=== PATIENT | male | born 1955 | race African-American/Black ===

== ENCOUNTER 2016-06-09 10:31 | Emergency (ER) | payer OTHER ==
[2016-06-09 10:41] VITALS: BP 152/83; PULSE 89; TEMP 98.9; BMI 30.1
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
[2016-06-09] MEDS ORDERED: IBUPROFEN 600 MG TABLET (FP) PO ONE ×2 (11:46→11:48)
== END 2016-06-09 12:18 | disposition home or self-care (01) ==
LOC: JERFT 10:31 → JER 10:31 → JERFT 12:18
PROC: 2W39X1Z Immobilization of Left Upper Extremity using Splint (ICD-10-PCS; principal; 2016-06-09)
DX: M77.8 Other enthesopathies, not elsewhere classified (principal)
CPT/HCPCS: 29260; 73110-TC-LT; 99281-25

== ENCOUNTER 2017-10-06 04:47 | Emergency (ER) | payer OTHER ==
[2017-10-06 04:54] VITALS: BP 139/89; PULSE 82; TEMP 97.8; BMI 29.6
[2017-10-06] MEDS ORDERED: IBUPROFEN 400 MG TABLET (FP) PO ONE (04:54)
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
== END 2017-10-06 05:03 | disposition home or self-care (01) ==
LOC: FER 04:47
DX: M25.512 Pain in left shoulder (principal); S46.902A Unspecified injury of unspecified muscle, fascia and tendon at shoulder and upper arm level, left arm, initial encounter; V43.52XA Car driver injured in collision with other type car in traffic accident, initial encounter; Y93.89 Activity, other specified; Y92.410 Unspecified street and highway as the place of occurrence of the external cause; I10 Essential (primary) hypertension; E11.9 Type 2 diabetes mellitus without complications
CPT/HCPCS: 99282-25

== ENCOUNTER 2019-05-04 08:39 | Inpatient (IN) | payer SELFPAY ==
[2019-05-04] MEDS: SODIUM CHLORIDE 1,000 ML IV SCH ×2 (09:15→17:38)
--- NOTE | 2019-05-04 09:25 | PDOC ---
History of Present Illness - General History Source: Patient Exam Limitations: No Limitations - History of Present Illness Initial Comments: 05/04/19 09:11 63 yo M with a hx of HTN and DM presents to the emergency department with right facial weakness that began at 7:30 am. Per the patient, he states he was at rest when the symptoms occurred. It was right facial weakness, but denies extremity weakness. Denies sensation loss. Denies hx of chickenpox and zoster. Per the patient, denies trauma. He feels, subjectively, resolving symptoms. Denies the following: fever, chills, SOB, chest pain, nausea, vomiting, ears/ nose/throat pain, abdominal pain, dysuria, hematuria, diarrhea, hematochezia, and leg pain/swelling. 05/04/19 10:16 <Jayson Pavon - Last Filed: 05/04/19 11:07> <Glenda Mckeon - Last Filed: 05/05/19 21:34> - General Stated Complaint: PAIN tPA Exclusion Checklist 0-3hr - Time Elapsed Date last known well: 05/04/19 Time last known well: 07:30 Elaspsed time: Day(s) and 3 Hour(s) and 37 Minutes - Thrombolytic Therapy Candidate Is the patient eligible for Thrombolytic Therapy?: Yes - Exclusion Criteria 0-3hr SBP greater than 185 or DBP greater than 110mmHg despite tx: No Recent IC/spinal surgery,head trauma or stroke w/in last 3mo: No Hx of previous IC hemorrhage, IC neoplasm, AVM or aneurysm: No Active internal bleeding: No Blding diathesis(low plt ct, inc PTT,INR>1.7 or use of NOAC): No Symptoms suggest subarachnoid hemorrhage: No CT demonstrates multilobar infarct(>1/3 cerebral hemiphere): No Arterial puncture at noncompressible site in previous 7 days: No - Relative Exclusion Criteria 0-3h Life expectancy <1yr/severe co-morbid illness/TELEX OPERATOR on admit: No : No Patient/family refused: No Rapid improvement: Yes Stroke severity too mild: Yes Recent acute WA (w/in previous 3 months): No Seizure at onset with postictal residual neuro impairments: No Major surgery or serious trauma w/in previous 14 days: No Recent GI or hemorrhage (w/in previous 21 days): No - Ineligibility reason(s) Reasons No tPA given: See reason(s) noted above <LibradoJayson - Last Filed: 05/04/19 11:07> - Thrombolytic Therapy Candidate Is the patient eligible for Thrombolytic Therapy?: No - Exclusion Criteria 0-3hr SBP greater than 185 or DBP greater than 110mmHg despite tx: No Recent IC/spinal surgery,head trauma or stroke w/in last 3mo: No Hx of previous IC hemorrhage, IC neoplasm, AVM or aneurysm: No Active internal bleeding: No Blding diathesis(low plt ct, inc PTT,INR>1.7 or use of NOAC): No Symptoms suggest subarachnoid hemorrhage: No CT demonstrates multilobar infarct(>1/3 cerebral hemiphere): No Arterial puncture at noncompressible site in previous 7 days: No Blood glucose concentration less than 50mg/dL (2.7mmol/L): No - Relative Exclusion Criteria 0-3h Life expectancy <1yr/severe co-morbid illness/TELEX OPERATOR on admit: No : No Patient/family refused: No Rapid improvement: Yes Stroke severity too mild: Yes Recent acute WA (w/in previous 3 months): No Seizure at onset with postictal residual neuro impairments: No Major surgery or serious trauma w/in previous 14 days: No Recent GI or hemorrhage (w/in previous 21 days): No - Ineligibility reason(s) Reasons No tPA given: See reason(s) noted above <Glenda Mckeon - Last Filed: 05/05/19 21:34> NIH Stroke Scale - Last Known Well Date/Time & Onset Date Last Known Well: 05/04/19 Time Last Known Well: 07:30 - Initial Evaluation Level of consciousness: Alert Ask patient the month and their age: Answers both correctly Ask patient to open & close eyes; make fist and let go: Obeys both correctly Best gaze (horizontal eye movement): Normal Visual field testing: No visual field loss Facial paresis (Show teeth/raise eyebrows/close eyes tight): Partial paralysis ( total or near paralysis of lower face) Motor Function: Left Arm: Normal Motor Function: Right Arm: Normal (extends arm 90 (or 45) degrees for 10 seconds without drift Motor Function: Left Leg: Normal (extends leg 30 degrees for 5 seconds without drift) Motor Function: Right Leg: Normal (extends leg 30 degrees for 5 seconds without drift) Limb Ataxia: No ataxia Sensory(Use pinprick test arms,legs,trunk,face/side to side): Normal Best language (Describe picture, name items, read sentences): No Aphasia Dysarthria (read several words): Normal articulation Extinction and Inattention: No abnormality - Total Score NIH Stroke Scale Score: 2 <LibradoJayson - Last Filed: 05/04/19 11:07> Past History - Past Medical History COPD: No Diabetes: Yes HTN: Yes - Psycho Social/Smoking Cessation Hx Smoking History: Unknown if ever smoked Have you smoked in the past 12 months: No Number of Cigarettes Smoked Daily: 0 Hx Alcohol Use: No Drug/Substance Use Hx: No Substance Use Type: None <Jayson Pavon - Last Filed: 05/04/19 11:07> <Glenda Mckeon - Last Filed: 05/05/19 21:34> - Past Medical History Allergies/Adverse Reactions: Allergies Allergy/AdvReac Type Severity Reaction Status Date / Time No Known Allergies Allergy Verified 05/04/19 08:52 Home Medications: Ambulatory Orders Amlodipine Besylate [Norvasc -] 10 mg PO DAILY 10/06/17 Metformin HCl [Glucophage] 500 mg PO BID 10/06/17 Hydrochlorothiazide 50 mg PO DAILY 05/04/19 Latanoprost/Pf [Latanoprost 0.005% Eye Drop] 1 drop OU HS 05/04/19 Simvastatin 40 mg PO HS 05/04/19 Timolol 0.5% [Timoptic 0.5%] 1 drop OU BID 05/04/19 *Physical Exam - Vital Signs Last Vital Signs Temp Pulse Resp BP Pulse Ox 97.4 F L 77 18 160/85 100 05/04/19 08:52 05/04/19 08:52 05/04/19 08:52 05/04/19 08:52 05/04/19 08:52 <Jayson Pavon - Last Filed: 05/04/19 11:07> - Vital Signs Last Vital Signs Temp Pulse Resp BP Pulse Ox 98.2 F 75 15 123/85 99 05/04/19 09:34 05/04/19 09:34 05/04/19 09:34 05/04/19 09:34 05/04/19 09:34 <Glenda Mckeon - Last Filed: 05/05/19 21:34> ED Treatment Course - LABORATORY CBC & Chemistry Diagram: 05/04/19 09:12 05/04/19 09:12 - RADIOLOGY Radiology Studies Ordered: Category Date Time Status HEAD CT (STROKE) [CT] Stat CT Scan 05/04/19 08:48 Completed <Jayson Paovn - Last Filed: 05/04/19 11:07> - LABORATORY CBC & Chemistry Diagram: 05/05/19 06:51 05/05/19 06:51 - ADDITIONAL ORDERS Additional order review: Laboratory Results 05/04/19 05/04/19 09:12 09:12 PT with INR 13.00 INR 1.10 H PTT (Actin FS) 41.8 H Sodium 137 Potassium 3.3 L Chloride 101 Carbon Dioxide 29 Anion Gap 7 L BUN 12.8 Creatinine 1.1 Est GFR (CKD-EPI)AfAm 83.53 Est GFR (CKD-EPI)NonAf 72.07 Random Glucose 108 H Calcium 9.7 Total Bilirubin 1.1 H AST 18 ALT 20 Alkaline Phosphatase 57 Creatine Kinase 242 Troponin I < 0.02 Total Protein 8.4 H Albumin 4.2 Triglycerides 57 Cholesterol 167 Total LDL Cholesterol 77 HDL Cholesterol 68 H 05/04/19 09:12 RBC 5.54 MCV 85.1 MCHC 34.1 RDW 14.1 MPV 9.2 Neutrophils % 58.4 Lymphocytes % 28.9 Monocytes % 8.9 Eosinophils % 2.5 Basophils % 1.3 <Glenda Mckeon - Last Filed: 05/05/19 21:34> Discharge - Discharge Information Problems reviewed: Yes <Jayson Pavon - Last Filed: 05/04/19 11:07> - Admission Yes <Glenda Mckeon - Last Filed: 05/05/19 21:34> - Discharge Information Clinical Impression/Diagnosis: Kelly's palsy Condition: Fair
[2019-05-04 09:28] LABS: BASO % 1.3 % (0-2.0); EOS % 2.5 % (0-4.5); HEMATOCRIT 47.1 % (35.4-49); HEMOGLOBIN 16.1 GM/dL (11.7-16.9); LYMPH % 28.9 % (8-40); MCH 29.1 pg (25.7-33.7); MCHC 34.1 g/dl (32.0-35.9); MEAN CELL VOLUME 85.1 fl (80-96); MEAN PLT VOLUME 9.2 fl (7.5-11.1); MONO % 8.9 % (3.8-10.2); NEUT % 58.4 % (42.8-82.8); PLATELET COUNT 217 K/MM3 (134-434); RBC 5.54 M/mm3 (4.00-5.60); RDW 14.1 % (11.9-15.9); WHITE BLOOD COUNT 4.5 K/mm3 (4.0-10.0)
[2019-05-04 09:40] LABS: INR 1.1 (0.83-1.09)
--- NOTE | 2019-05-04 09:40 | PDOC ---
Attending Attestation - Resident Resident Name: Jayson Pavon - ED Attending Attestation I have performed the following: I have examined & evaluated the patient, The case was reviewed & discussed with the resident, I agree w/resident's findings & plan - HPI HPI: 05/04/19 11:27 63 yo M with a hx of HTN and DM presents to the emergency department with right facial weakness that began at 7:30 am. Per the patient, he states he was at rest when the symptoms occurred. It was right facial weakness, with droop but denies extremity weakness. Denies sensation loss. Denies hx of chickenpox and zoster. Per the patient, denies trauma. no focal weakness, sensory deficits. - Physicial Exam PE: 05/04/19 09:36 Agree with the resident's HPI and PE as documented in the electronic medical record. NAD, well appearing, Alert, oriented to person time and place. EOMI, PERRL, nl conjunctiva, anicteric; neck supple. lungs clear, RRR, no murmur abdomen soft nontender. no rebound, guarding. Back nontender. SAMANIEGO x4, No peripheral edema. normal color for ethnicity, WWP. +right lower facial droop, remainder of cranial nerves intact. Strength prox and distally 5/5 throughout. Sensation grossly intact to light touch. SAMANIEGO x4. No cerebellar signs, gait stable.. Speech clear. comprehension intact, no aphasia, no dysarthria. 05/04/19 11:28 - Medical Decision Making 05/04/19 09:37 Vital Signs Temp Pulse Resp BP Pulse Ox 98.2 F 75 15 123/85 99 05/04/19 09:34 05/04/19 09:34 05/04/19 09:34 05/04/19 09:34 05/04/19 09:34 ddx. CVA, carotid stenosis, arrhythmia, ACS, kelly's palsy vitals wln not tpa indicated, pt more likely has kelly's palsy with the lower facial droop, very minor/mild deficits NIHSS 1 CT head prelim unremarkable, no bleed or infarction MRI to eval for CVA labs unremarkable. mildly low K, repleted trop neg, ECG unremarkable, nonspecific T wave abnormalities noted. neuro cs with Dr Yusuf - agree with plan, admit, MRI to eval for CVA given medical comorbidities, will follow admit for CVA eval, TIA, medical management. however, sx more consistent with Kelly's palsy - initial steroid given prednisone 60mg x1. 05/04/19 11:28 05/04/19 11:55 Heart Score/ECG Review #1 ECG reviewed & interpreted by me at: 09:20 General ECG Interpretation: Sinus Rhythm, Normal Rate, Normal Intervals Compared to previous ECG there are: Previous ECG unavail 05/04/19 09:47 EKG normal sinus rhythm at 71 bpm, no interval abnormalities, narrow QRS, ST and T wave segments and morphology normal. Nonspecific T wave abnormalities
[2019-05-04 09:43] LABS: ACTIVATED PTT 41.8 SECONDS (25.2-36.5)
[2019-05-04 09:56] LABS: ALBUMIN 4.2 g/dl (3.4-5.0); ALK PHOS 57 U/L (45-117); ANION GAP 7 MMOL/L (8-16); BILIRUBIN,TOTAL 1.1 mg/dL (0.2-1); BLOOD UREA NITROGEN 12.8 mg/dL (7-18); CALCIUM 9.7 mg/dL (8.5-10.1); CHLORIDE 101 mmol/L (98-107); CHOLESTEROL 167 mg/dL (50-200); CO2 29 mmol/L (21-32); CREATININE 1.1 mg/dL (0.55-1.3); GLUCOSE,RANDOM 108 mg/dL (74-106); HDL CHOLESTEROL 68 mg/dL (40-60); LDL CHOLESTEROL (ONLY SJRH) 77 mg/dL (5-100); POTASSIUM 3.3 mmol/L (3.5-5.1); SGOT/AST 18 U/L (15-37); SGPT/ALT 20 U/L (13-61); SODIUM 137 mmol/L (136-145); TOT PROT 8.4 g/dl (6.4-8.2); TRIGLYCERIDES 57 mg/dL (0-150)
[2019-05-04] MEDS ORDERED: POTASSIUM CHLORIDE TABS 20 MEQ TABLET.ER (FP) PO ONE ×3 (10:10→11:12)
--- NOTE | 2019-05-04 11:25 | CONSULT ---
Consult - text type - Consultation Consultation Note: Neurology History of Present Illness - History of Present Illness 63 yo M with a hx of HTN and DM presents to the emergency department with right facial weakness that began at 7:30 am morning of admission. Per the patient, he states he was at rest when the symptoms occurred. It was right facial weakness, but denies extremity weakness. Denies sensation loss. Denies hx of chickenpox and zoster. Per the patient, denies trauma. He feels, subjectively, resolving symptoms. Denied fever, chills, SOB, chest pain, nausea, vomiting, ears/nose/ throat pain, abdominal pain, dysuria, hematuria, diarrhea, hematochezia, and leg pain/swelling. Ramakrishna coles was called and I saw the patient at bedside in the ER who did demonstrate some right facial weakness but otherwise no other focal deficits. Speech was fluent Noncontrast head CT was completed and did not show any acute changes. Discussed with the resident that would not likely be a TPA case as patient with minimal symptoms, NIHSS. I advised admission and having MRI of the brain completed. Question ppossible Kelly's palsy which is within the differential diagnosis but rule out stroke would be needed. Past History - Past Medical History COPD: No Diabetes: Yes HTN: Yes - Psycho Social/Smoking Cessation Hx Smoking History: Unknown if ever smoked Have you smoked in the past 12 months: No Number of Cigarettes Smoked Daily: 0 Hx Alcohol Use: No Drug/Substance Use Hx: No Substance Use Type: None FAMILY: HTN - Past Medical History Allergies/Adverse Reactions: Allergies Allergy/AdvReac Type Severity Reaction Status Date / Time No Known Allergies Allergy Verified 05/04/19 08:52 Home Medications: Ambulatory Orders Amlodipine Besylate [Norvasc -] 10 mg PO DAILY 10/06/17 Metformin HCl [Glucophage] 500 mg PO BID 10/06/17 REVIEW OF SYSTEMS CONSTITUTIONAL: Absent: fever, chills, diaphoresis, + generalized weakness, malaise HEENT: Absent: rhinorrhea, nasal congestion, throat pain, throat swelling, difficulty swallowing, mouth swelling, ear pain, eye pain, visual changes CARDIOVASCULAR: Absent: chest pain, syncope, palpitations, irregular heart rate, lightheadedness , peripheral edema RESPIRATORY: Absent: cough, shortness of breath, dyspnea with exertion, orthopnea, wheezing, stridor, hemoptysis GASTROINTESTINAL: Absent: abdominal pain, abdominal distension, nausea GENITOURINARY: Absent: dysuria, frequency, urgency, MUSCULOSKELETAL: Absent: myalgia, SKIN: Absent: rash, itching, pallor HEMATOLOGIC/IMMUNOLOGIC: Absent: easy bleeding, easy bruising, lymphadenopathy, frequent infections ENDOCRINE: Absent: unexplained weight gain, unexplained weight loss, heat intolerance, cold intolerance NEUROLOGIC: Absent: headache, focal weakness or paresthesias, dizziness, seizure, PSYCHIATRIC: Absent: anxiety, depression, suicidal or homicidal ideation, hallucinations. *Physical Exam Vital Signs Period Temp Pulse Resp BP Sys/L[place]ton Pulse Ox Last 24 Hr 97.4 F-98.2 F 75-77 15-18 123-160/85-85 99-100 Gen: Awake, alert, responds to questions appropriately Card: RRR, nml S1,S2 Resp: Normal symmetric effort, lungs clear to auscultation Abdomen: Soft, nontender, bowel sounds active Musculoskeletal: Adequate range of motion without significant deformity Head atraumatic and normocephalic CN: PERRL, EOMI intact, mild R facial droop, no abnormalities in facial sensation, palate elevates, uvula and tongue midline Motor: Strength intact to confrontation in upper and lower extremities. Tone normal throughout Sensory: Intact to Temperature, light touch, and pinprick in all extremities Reflexes: 2+ biceps, brachioradialis, patellar, achillies Coordination: Intact on [id number] testing Laboratory Results 05/04/19 05/04/19 09:12 09:12 PT with INR 13.00 INR 1.10 H PTT (Actin FS) 41.8 H Sodium 137 Potassium 3.3 L Chloride 101 Carbon Dioxide 29 Anion Gap 7 L BUN 12.8 Creatinine 1.1 Est GFR (CKD-EPI)AfAm 83.53 Est GFR (CKD-EPI)NonAf 72.07 Random Glucose 108 H Calcium 9.7 Total Bilirubin 1.1 H AST 18 ALT 20 Alkaline Phosphatase 57 Creatine Kinase 242 Troponin I < 0.02 Total Protein 8.4 H Albumin 4.2 Triglycerides 57 Cholesterol 167 Total LDL Cholesterol 77 HDL Cholesterol 68 H 05/04/19 09:12 RBC 5.54 MCV 85.1 MCHC 34.1 RDW 14.1 MPV 9.2 Neutrophils % 58.4 Lymphocytes % 28.9 Monocytes % 8.9 Eosinophils % 2.5 Basophils % 1.3 Plan: 63 yo M with a hx of HTN and DM presents to the emergency department with right facial weakness that began at 7:30 am morning of admission. Per the patient, he states he was at rest when the symptoms occurred. It was right facial weakness, but denies extremity weakness. Denies sensation loss. Denies hx of chickenpox and zoster. Per the patient, denies trauma. He feels, subjectively, resolving symptoms. Denied fever, chills, SOB, chest pain, nausea, vomiting, ears/nose/ throat pain, abdominal pain, dysuria, hematuria, diarrhea, hematochezia, and leg pain/swelling. Ramakrishna coles was called and I saw the patient at bedside in the ER who did demonstrate some right facial weakness but otherwise no other focal deficits. Speech was fluent Noncontrast head CT was completed and did not show any acute changes. Discussed with the resident that would not likely be a TPA case as patient with minimal symptoms, NIHSS. I advised admission and having MRI of the brain completed. Question ppossible Kelly's palsy which is within the differential diagnosis but rule out stroke would be needed. LDL of 77 noted within normal limits. Monitor blood pressure, hold antiHTN for now, unless MRI shows no CVA. monitor glucose, continue metformin 500 mg twice a day. ASA 81mg for now, may d/c if no CVA found on MRI. If MRI negative, would consider ttreatment for Kelly's palsy including 5 day course of prednisone, valacyclovir, facial exercises, eye patch, eyedrops.
[2019-05-04] MEDS ORDERED: predniSONE 20 MG TABLET (UD) PO ONE (11:54)
[2019-05-04] MEDS ORDERED: predniSONE 20 MG TABLET (UD) ONE (12:28)
[2019-05-04] MEDS ORDERED: PANTOPRAZOLE 20 MG TABLET PO SCH (13:15)
--- NOTE | 2019-05-04 13:17 | EKG ---
Test Reason : Blood Pressure : / mmHG Vent. Rate : 071 BPM Atrial Rate : 071 BPM P-R Int : 138 ms QRS Dur : 100 ms QT Int : 408 ms P-R-T Axes : 069 -01 008 degrees QTc Int : 443 ms NORMAL SINUS RHYTHM POSSIBLE LEFT ATRIAL ENLARGEMENT NONSPECIFIC T WAVE ABNORMALITY ABNORMAL ECG WHEN COMPARED WITH ECG OF 08-FEB-2005 07:36, NONSPECIFIC T WAVE ABNORMALITY NOW EVIDENT IN INFERIOR LEADS Confirmed by YASMANY LUND MD ([id number]) on 05/04/2019 1:17:05 PM Referred By: Confirmed By:YASMANY LUND MD
--- NOTE | 2019-05-04 13:49 | HP ---
CHIEF COMPLAINT: R. Sided facial droop HISTORY OF PRESENT ILLNESS: Pt. is a 63 y.o. M w/ PMHx. of HTN, DM2 and HLD presenting for sudden onset of R. sided facial droop, R. sided upper extremity weakness and numbness and slurred speech that started at 7:30 am. On further questioning Pt. endorsed that this happened before a couple weeks ago. Pt. states that since ED arrival 2.5 hours later he had resolution of RUE numbness and weakness. Pt. states that his eyes have been "bad" for years and that these symptoms have not changed recently. Pt. endorses one having very high blood pressure causing nondescript neurological symptoms but that this time it felt different. Pt. endorses constipation and mild headache for the last couple of days. Pt. denies every having a CVA in the past, DVTs or any coagulopathies including blood in the stool or urine. Pt. denies recent sickness or ever having chicken pox. Pt. denies any shortness of breath, chest pain, fever, chills, nausea, vomiting, dysuria, rashes( other than the dry skin on his LLE), or diarrhea. ER course was notable for: (1)1 L NS, Head CT -, NIHSS:2, lipid panel (2)CBC, CMP, EKG, INR (3) PAST MEDICAL HISTORY: As above PAST SURGICAL HISTORY: Denies Social History: Smoking: Denies Alcohol: Occasional singular drink Drugs: Denies Allergies No Known Allergies Allergy (Verified 05/04/19 08:52) HOME MEDICATIONS: Home Medications Medication Instructions Recorded Amlodipine Besylate [Norvasc -] 10 mg PO DAILY 10/06/17 Metformin HCl [Glucophage] 500 mg PO BID 10/06/17 Hydrochlorothiazide 50 mg PO DAILY 05/04/19 Latanoprost/Pf [Latanoprost 0.005% 1 drop OU HS 05/04/19 Eye Drop] Simvastatin 40 mg PO HS 05/04/19 Timolol 0.5% [Timoptic 0.5%] 1 drop OU BID 05/04/19 REVIEW OF SYSTEMS As above PHYSICAL EXAMINATION Vital Signs - 24 hr 05/04/19 05/04/19 05/04/19 08:48 08:52 09:34 Temperature 97.4 F L 98.2 F Pulse Rate 75 77 Pulse Rate [ 75 Right Radial] Respiratory 18 15 Rate Blood Pressure 160/85 Blood Pressure 123/85 [Left Arm] O2 Sat by Pulse 99 100 99 Oximetry (%) GENERAL: Awake, alert, and fully oriented, in no acute distress. HEAD: Normal with no signs of trauma. EYES: "Lazy left eye," scleral redness and yellowing bilaterally. Pupils eaual and reactive to light. EARS, NOSE, THROAT: Ears normal, nares patent, oropharynx clear without exudates. Moist mucous membranes. NECK: Normal range of motion, supple without lymphadenopathy, JVD, or masses. LUNGS: Breath sounds equal, clear to auscultation bilaterally. No wheezes, and no crackles. No accessory muscle use. HEART: Regular rate and rhythm, normal S1 and S2 without murmur ABDOMEN: Soft, nontender, not distended, normoactive bowel sounds, no guarding, no rebound, no masses. MUSCULOSKELETAL: Normal range of motion at all joints. No bony deformities or tenderness. No CVA tenderness. UPPER EXTREMITIES: 2+ radial pulses, warm, well-perfused. No cyanosis. No clubbing. No peripheral edema. LOWER EXTREMITIES: 2+ dorsal pedal pulses, warm, well-perfused. No calf tenderness. No peripheral edema. NEUROLOGICAL: Slight R. mouth droop, more prominent on smile. Normal speech. Normal gait. NIHSS:2 PSYCHIATRIC: Cooperative. Good eye contact. Appropriate mood and affect. SKIN: Warm, dry skin, xerosis of lower extremities Laboratory Results - last 24 hr 05/04/19 05/04/19 05/04/19 09:12 09:12 09:12 WBC 4.5 RBC 5.54 Hgb 16.1 Hct 47.1 MCV 85.1 MCH 29.1 MCHC 34.1 RDW 14.1 Plt Count 217 MPV 9.2 Absolute Neuts (auto) 2.6 Neutrophils % 58.4 Lymphocytes % 28.9 Monocytes % 8.9 Eosinophils % 2.5 Basophils % 1.3 Nucleated RBC % 0 PT with INR 13.00 INR 1.10 H PTT (Actin FS) 41.8 H Sodium 137 Potassium 3.3 L Chloride 101 Carbon Dioxide 29 Anion Gap 7 L BUN 12.8 Creatinine 1.1 Est GFR (CKD-EPI)AfAm 83.53 Est GFR (CKD-EPI)NonAf 72.07 Random Glucose 108 H Calcium 9.7 Total Bilirubin 1.1 H AST 18 ALT 20 Alkaline Phosphatase 57 Creatine Kinase 242 Creatine Kinase Index 0.8 CK-MB (CK-2) 2.1 Troponin I < 0.02 Total Protein 8.4 H Albumin 4.2 Triglycerides 57 Cholesterol 167 Total LDL Cholesterol 77 HDL Cholesterol 68 H Blood Type Antibody Screen 05/04/19 09:12 WBC RBC Hgb Hct MCV MCH MCHC RDW Plt Count MPV Absolute Neuts (auto) Neutrophils % Lymphocytes % Monocytes % Eosinophils % Basophils % Nucleated RBC % PT with INR INR PTT (Actin FS) Sodium Potassium Chloride Carbon Dioxide Anion Gap BUN Creatinine Est GFR (CKD-EPI)AfAm Est GFR (CKD-EPI)NonAf Random Glucose Calcium Total Bilirubin AST ALT Alkaline Phosphatase Creatine Kinase Creatine Kinase Index CK-MB (CK-2) Troponin I Total Protein Albumin Triglycerides Cholesterol Total LDL Cholesterol HDL Cholesterol Blood Type A POSITIVE Antibody Screen Negative ASSESSMENT/PLAN: Pt. is a 63 y.o. M w/ PMHx. of HTN, DM2 and HLD presenting for sudden onset of R. sided facial droop, R. sided upper extremity weakness and numbness and slurred speech that started at 7:30 am. On further questioning Pt. endorsed that this happened before a couple weeks ago. #Lagrange Palsy vs. Hypertensive Emergency vs. TIA Neurology consult, Dr. Yusuf appreciated Head CT negative MRI Negative Leading differential is Lagrange Palsy given negative results on imaging will continue workup for TIA with Carotid Doppler, Echo, TSH, telemetry monitoring, neurochecks f/u HIV and RPR to r/ infectious etiology f/u TSH On lipid panel LDL: 77, not at goal of less than 70 therefore will intensify statin MRI negative therefore will discontinue Aspirin House-Brackmann score of 2 (moderate disease), therefore will not start Valcycolvir. 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 #HLD LDL: 77, therefore will increase Rosuvastatin to 40mg #HTN c/w Norvasc, and HCTZ #DM2 hold oral medications BGM ACHS ISS ACHS f/u A1c #FEN no IVF, encourage Po intake monitor electrolytes and replete as needed, presented hypokalemic(3.3) repleted with 40meq PO, f/u AM BMP Diabetic/ Sodium controlled diet #DVT Ppx. Lovenox 40mg SQ Visit type - Emergency Visit Emergency Visit: Yes ED Registration Date: 05/04/19 Care time: The patient presented to the Emergency Department on the above date and was hospitalized for further evaluation of their emergent condition. - New Patient This patient is new to me today: Yes Date on this admission: 05/04/19 - Critical Care Critical Care patient: No ATTENDING PHYSICIAN STATEMENT I saw and evaluated the patient. I reviewed the resident's note and discussed the case with the resident. I agree with the resident's findings and plan as documented. SUBJECTIVE: OBJECTIVE: ASSESSMENT AND PLAN:
[2019-05-04] MEDS: predniSONE 20 MG TABLET (UD) PO SCH (16:28)
[2019-05-04] MEDS: INSULIN SLIDING SCALE (NOVOLOG) 1 VIAL SQ SCH ×2 (17:37→23:30)
[2019-05-04 18:15] LABS: PH,URINE 7.5 (5.0-8.0); URINE APPEARANCE CLEAR; URINE BILIRUBIN NEGATIVE (NEGATIVE); URINE COLOR YELLOW; URINE GLUCOSE (UA) 1+ (NEGATIVE); URINE KETONE NEGATIVE (NEGATIVE); URINE LEUK ESTERASE NEGATIVE (NEGATIVE); URINE NITRITE NEGATIVE (NEGATIVE); URINE PROTEIN NEGATIVE (NEGATIVE)
[2019-05-04] MEDS ORDERED: HEPARIN NA (PORCINE) 5,000 UNITS/ML 1ML VIAL ONE (18:51)
--- NOTE | 2019-05-04 19:02 | CONSULT ---
Consult Consult Specialty:: Nephrology Reason for Consultation:: htn and hypokalemia - History of Present Illness Chief Complaint: right facial weakness History of Present Illness: Pt is a 63 year old male with pmhx of htn and dm who presents with right facial weakness. He says that the symptoms began at about 7 30 am. He was found to be hypertensive and hypokalemic and I was called to evaluate him. He denies shortness of breath. He denies dysuria or hematuria. He says that he has long standing hypertension. He is not sure if his potassium has been low in the past. - History Source History Provided By: Patient - Past Medical History Cardio/Vascular: Yes: HTN Endocrine: Yes: Diabetes Mellitus - Alcohol/Substance Use Hx Alcohol Use: No - Smoking History Smoking history: Unknown if ever smoked Have you smoked in the past 12 months: No Aproximately how many cigarettes per day: 0 Home Medications - Allergies Allergies/Adverse Reactions: Allergies Allergy/AdvReac Type Severity Reaction Status Date / Time No Known Allergies Allergy Verified 05/04/19 08:52 - Home Medications Home Medications: Ambulatory Orders Amlodipine Besylate [Norvasc -] 10 mg PO DAILY 10/06/17 Metformin HCl [Glucophage] 500 mg PO BID 10/06/17 Hydrochlorothiazide 50 mg PO DAILY 05/04/19 Latanoprost/Pf [Latanoprost 0.005% Eye Drop] 1 drop OU HS 05/04/19 Simvastatin 40 mg PO HS 05/04/19 Timolol 0.5% [Timoptic 0.5%] 1 drop OU BID 05/04/19 Family Medical History Family History: Denies Review of Systems - Review of Systems Constitutional: reports: No Symptoms Eyes: reports: No Symptoms HENT: reports: No Symptoms Neck: reports: No Symptoms Cardiovascular: reports: No Symptoms Respiratory: reports: No Symptoms Gastrointestinal: reports: No Symptoms Genitourinary: reports: No Symptoms Musculoskeletal: reports: No Symptoms Integumentary: reports: No Symptoms Neurological: reports: Other (right facial weakness) Psychiatric: reports: No Symptoms Physical Exam Vital Signs: Vital Signs Temperature 98.0 F 05/04/19 17:08 Pulse Rate 63 05/04/19 17:08 Respiratory Rate 15 05/04/19 17:08 Blood Pressure 126/83 05/04/19 17:08 O2 Sat by Pulse Oximetry (%) 99 05/04/19 09:34 Constitutional: Yes: Calm Eyes: Yes: Conjunctiva Clear HENT: Yes: Atraumatic Neck: Yes: Supple Cardiovascular: Yes: S1, S2 Respiratory: Yes: CTA Bilaterally Gastrointestinal: Yes: WNL Renal/: Yes: WNL Extremities: Yes: WNL Integumentary: Yes: WNL Neurological: Yes: Other (right facial weakness) Labs: CBC, BMP 05/04/19 09:12 05/04/19 09:12 Selected Entries 05/04/19 08:52 Blood Pressure 160/85 Imaging - Results MRI: Report Reviewed Problem List - Problems (1) HTN (hypertension) Code(s): I10 - ESSENTIAL (PRIMARY) HYPERTENSION (2) Hypokalemia Code(s): E87.6 - HYPOKALEMIA Assessment/Plan Current Medications Generic Name Dose Route Start Last Admin Trade Name Freq PRN Reason Stop Dose Admin Amlodipine Besylate 10 mg 05/05/19 10:00 Norvasc - PO DAILY [facility] Atorvastatin Calcium 20 mg 05/04/19 22:00 Lipitor - PO HS NATHANIEL Docusate Sodium 100 mg 05/04/19 13:15 Colace - PO DAILY [facility] Heparin Sodium (Porcine) 5,000 unit 05/04/19 18:00 Heparin - SQ Q8H-IV [facility] Hydrochlorothiazide 50 mg 05/05/19 10:00 Hctz - PO DAILY [facility] Sodium Chloride 1,000 mls @ 42 mls/hr 05/04/19 09:00 05/04/19 17:38 Normal Saline - IV 42 mls/hr ASDIR NATHANIEL Administration Insulin Aspart 1 vial 05/04/19 16:30 05/04/19 17:37 Novolog Vial Sliding Scale - SQ Not Given ACHS [facility] Protocol Latanoprost 1 drop 05/04/19 22:00 Xalatan 0.005% Eye Drops - OU HS NATHANIEL Pantoprazole Sodium 40 mg 05/04/19 13:48 Protonix - PO DAILY NATHANIEL Polyethylene Glycol 17 gm 05/04/19 13:15 Miralax (For Daily Use) - PO DAILY NATHANIEL Prednisone 60 mg 05/04/19 14:00 05/04/19 16:28 Deltasone - PO 05/08/19 10:01 Not Given DAILY NATHANIEL Timolol Maleate 1 drop 05/04/19 22:00 Timoptic 0.5% OU BID NATHANIEL Impression 1. HTN 2. hypokalemia 3. right facial weakness 4. DM Plan - bp has normalized - replace potassium - repeat labs in am - if potassium persistently low can check renin and mar levels - can see pt in office
[2019-05-04] MEDS: HEPARIN NA (PORCINE) 5,000 UNITS/ML 1ML VIAL SQ SCH (19:05)
[2019-05-04] MEDS: ATORVASTATIN CA 20 MG TABLET (FP) PO SCH (23:31)
[2019-05-04] MEDS: DOCUSATE SODIUM 100 MG CAPSULE (FP) PO SCH (23:31)
[2019-05-04] MEDS: POLYETHYLENE GLYCOL 3350 119 GM BTL PO SCH (23:31)
--- NOTE | 2019-05-04 23:37 | PN ---
Teaching Attending Note Name of Resident: Nikunj Mcbride ATTENDING PHYSICIAN STATEMENT I saw and evaluated the patient. I reviewed the resident's note and discussed the case with the resident. I agree with the resident's findings and plan as documented. 63 M h/o HTN, DM2 and HLD presenting for sudden onset of R sided facial droop, R hand weakness and slight slurred speech that started at 7:30 am. Patient endorses symptoms started weeks back and were intermittent coming and going. This morning patient noticed some weakness in his hand, and also noticed some right lower mouth droop as compared to before. Denies history of CAD/CVA/CP/SOB/ syncope/LOC. Has history of strabismus for many years. 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 Takes meds for HTN and sometimes BP runs high and usually gets an associated GRIMM with HTN. PE VSS GA comfortable, aaox3, speaks in full sentences HEENT NC/AT, mild R eye strabismus present, eyes cross midline, neck supple, slight R mouth droop as compared to L Chest CTAB, no crackles or wheezes CVS S1, S2+, RRR, no m/r/g Abd Soft, NT, ND, BS+ Ext moves all 4 extremities, no LE edema, no calf tenderness Neuro: sensation intact and equal upper and lower extremities, moves all 4 extremities with 5/5 strength UE and LE, faint R mouth facial droop as compared to L, facial muscles intact Vital Signs - 24 hr 05/04/19 05/04/19 05/04/19 08:48 08:52 09:34 Temperature 97.4 F L 98.2 F Pulse Rate 75 77 Pulse Rate [ 75 Right Radial] Respiratory 18 15 Rate Blood Pressure 160/85 Blood Pressure 123/85 [Left Arm] O2 Sat by Pulse 99 100 99 Oximetry (%) 05/04/19 05/04/19 05/04/19 17:08 20:51 21:49 Temperature 98.0 F 97.6 F Pulse Rate 63 77 Pulse Rate [ Right Radial] Respiratory 15 16 18 Rate Blood Pressure 126/83 127/71 Blood Pressure [Left Arm] O2 Sat by Pulse 99 Oximetry (%) Laboratory Results - last 24 hr 05/04/19 05/04/19 05/04/19 09:12 09:12 09:12 WBC 4.5 RBC 5.54 Hgb 16.1 Hct 47.1 MCV 85.1 MCH 29.1 MCHC 34.1 RDW 14.1 Plt Count 217 MPV 9.2 Absolute Neuts (auto) 2.6 Neutrophils % 58.4 Lymphocytes % 28.9 Monocytes % 8.9 Eosinophils % 2.5 Basophils % 1.3 Nucleated RBC % 0 PT with INR 13.00 INR 1.10 H PTT (Actin FS) 41.8 H Sodium 137 Potassium 3.3 L Chloride 101 Carbon Dioxide 29 Anion Gap 7 L BUN 12.8 Creatinine 1.1 Est GFR (CKD-EPI)AfAm 83.53 Est GFR (CKD-EPI)NonAf 72.07 POC Glucometer Random Glucose 108 H Calcium 9.7 Total Bilirubin 1.1 H AST 18 ALT 20 Alkaline Phosphatase 57 Creatine Kinase 242 Creatine Kinase Index 0.8 CK-MB (CK-2) 2.1 Troponin I < 0.02 Total Protein 8.4 H Albumin 4.2 Triglycerides 57 Cholesterol 167 Total LDL Cholesterol 77 HDL Cholesterol 68 H Urine Color Urine Appearance Urine pH Ur Specific [place] Urine Protein Urine Glucose (UA) Urine Ketones Urine Blood Urine Nitrite Urine Bilirubin Urine Urobilinogen Ur Leukocyte Esterase HIV 1&2 Antibody Screen HIV P24 Antigen Blood Type Antibody Screen 05/04/19 05/04/19 05/04/19 09:12 13:35 16:55 WBC RBC Hgb Hct MCV MCH MCHC RDW Plt Count MPV Absolute Neuts (auto) Neutrophils % Lymphocytes % Monocytes % Eosinophils % Basophils % Nucleated RBC % PT with INR INR PTT (Actin FS) Sodium Potassium Chloride Carbon Dioxide Anion Gap BUN Creatinine Est GFR (CKD-EPI)AfAm Est GFR (CKD-EPI)NonAf POC Glucometer 161 Random Glucose Calcium Total Bilirubin AST ALT Alkaline Phosphatase Creatine Kinase Creatine Kinase Index CK-MB (CK-2) Troponin I Total Protein Albumin Triglycerides Cholesterol Total LDL Cholesterol HDL Cholesterol Urine Color Urine Appearance Urine pH Ur Specific [place] Urine Protein Urine Glucose (UA) Urine Ketones Urine Blood Urine Nitrite Urine Bilirubin Urine Urobilinogen Ur Leukocyte Esterase HIV 1&2 Antibody Screen HIV P24 Antigen Blood Type A POSITIVE A POSITIVE Antibody Screen Negative 05/04/19 05/04/19 05/04/19 17:20 17:20 18:00 WBC RBC Hgb Hct MCV MCH MCHC RDW Plt Count MPV Absolute Neuts (auto) Neutrophils % Lymphocytes % Monocytes % Eosinophils % Basophils % Nucleated RBC % PT with INR INR PTT (Actin FS) Sodium Potassium Chloride Carbon Dioxide Anion Gap BUN Creatinine Est GFR (CKD-EPI)AfAm Est GFR (CKD-EPI)NonAf POC Glucometer Random Glucose Calcium Total Bilirubin AST ALT Alkaline Phosphatase Creatine Kinase Creatine Kinase Index CK-MB (CK-2) Troponin I < 0.02 Total Protein Albumin Triglycerides Cholesterol Total LDL Cholesterol HDL Cholesterol Urine Color Yellow Urine Appearance Clear Urine pH 7.5 Ur Specific [place] 1.015 Urine Protein Negative Urine Glucose (UA) 1+ H Urine Ketones Negative Urine Blood Negative Urine Nitrite Negative Urine Bilirubin Negative Urine Urobilinogen 1.0 Ur Leukocyte Esterase Negative HIV 1&2 Antibody Screen Negative HIV P24 Antigen Negative Blood Type Antibody Screen Current Medications Generic Name Dose Route Start Last Admin Trade Name Freq PRN Reason Stop Dose Admin Amlodipine Besylate 10 mg 05/05/19 10:00 Norvasc - PO DAILY NATHANIEL Atorvastatin Calcium 20 mg 05/04/19 22:00 05/04/19 23:31 Lipitor - PO 20 mg HS NATHANIEL Administration Docusate Sodium 100 mg 05/04/19 13:15 05/04/19 23:31 Colace - PO 100 mg DAILY NATHANIEL Administration Heparin Sodium (Porcine) 5,000 unit 05/04/19 18:00 05/04/19 19:05 Heparin - SQ 5,000 unit Q8H-IV NATHANIEL Administration Hydrochlorothiazide 50 mg 05/05/19 10:00 Hctz - PO DAILY NATHANIEL Sodium Chloride 1,000 mls @ 42 mls/hr 05/04/19 09:00 05/04/19 17:38 Normal Saline - IV 42 mls/hr ASDIR NATHANIEL Administration Insulin Aspart 1 vial 05/04/19 16:30 05/04/19 23:30 Novolog Vial Sliding Scale - SQ Not Given ACHS [facility] Protocol Latanoprost 1 drop 05/04/19 22:00 Xalatan 0.005% Eye Drops - OU HS NATHANIEL Pantoprazole Sodium 40 mg 05/04/19 13:48 Protonix - PO DAILY NATHANIEL Polyethylene Glycol 17 gm 05/04/19 13:15 05/04/19 23:31 Miralax (For Daily Use) - PO 17 gm DAILY NATHANIEL Administration Prednisone 60 mg 05/04/19 14:00 05/04/19 16:28 Deltasone - PO 05/08/19 10:01 Not Given DAILY NATHANIEL Timolol Maleate 1 drop 05/04/19 22:00 Timoptic 0.5% OU BID NATHANIEL A/P: 63 year old AA M, h/o HTN, HLD, T2DM presents with symptoms of R mouth droop and R hand weakness, ?[place] palsy paralysis, HTN encephalopathy, v.s. TIA/CVA. R mouth droop MRI neg. for acute CVA, ?viral in origin, ASA/Statin given Symptoms been going on for weeks, if CVA shouldve been seen on MRI Prednisone 60mg daily to cover for HSV/[place] Palsy, no need for antivirals right now due to mild symptoms, consider repeat brain imaging if change in neuro status, cont. neurochecks and serial NIH scores, send HIV (pt. consented) , RPR, HSV panel Neurology consult HTN Allow for permissive HTN for now until CVA is ruled out Restart BP meds when clinically appropriate, reimbursement counselor on BP control, replace K if still low consider sending renin-mar levels to screen for hyperaldosteronism HLD Restart statin T2DM Diet, exercise, weight loss counseling ISS, basal insulin PRN DVT ppx: Lovenox SC Speech and swallow evaluation Admit to tele
[2019-05-05] MEDS: LATANOPROST 0.005% OPHTH SOLN 2.5ML BOTTLE OU SCH ×2 (00:06→21:52)
[2019-05-05] MEDS: TIMOLOL 0.5% OPHTHALMIC SOL 5 ML BOTTLE OU SCH ×3 (00:06→21:51)
[2019-05-05 02:15] VITALS: BMI 30.4
[2019-05-05] MEDS: HEPARIN NA (PORCINE) 5,000 UNITS/ML 1ML VIAL SQ SCH ×3 (03:00→17:20)
[2019-05-05] MEDS: INSULIN SLIDING SCALE (NOVOLOG) 1 VIAL SQ SCH ×4 (06:28→21:52)
[2019-05-05 07:50] LABS: BASO % 0.6 % (0-2.0); EOS % 0.1 % (0-4.5); HEMATOCRIT 44.2 % (35.4-49); LYMPH % 15.1 % (8-40); MCHC 33.8 g/dl (32.0-35.9); MEAN CELL VOLUME 85.7 fl (80-96); MEAN PLT VOLUME 9.7 fl (7.5-11.1); MONO % 10.9 % (3.8-10.2); NEUT % 73.3 % (42.8-82.8); PLATELET COUNT 196 K/MM3 (134-434); RBC 5.16 M/mm3 (4.00-5.60); RDW 14.1 % (11.9-15.9); WHITE BLOOD COUNT 7.6 K/mm3 (4.0-10.0)
[2019-05-05 08:24] LABS: ALBUMIN 3.5 g/dl (3.4-5.0); BILIRUBIN,TOTAL 0.7 mg/dL (0.2-1); BLOOD UREA NITROGEN 17.3 mg/dL (7-18); CALCIUM 9.4 mg/dL (8.5-10.1); MAGNESIUM 2.4 mg/dL (1.8-2.4); PHOSPHOROUS 3.2 mg/dL (2.5-4.9); POTASSIUM 4.3 mmol/L (3.5-5.1); TOT PROT 7.2 g/dl (6.4-8.2)
[2019-05-05 08:59] LABS: RPR NONREACTIVE (NONREACTIVE)
--- NOTE | 2019-05-05 09:31 | PN ---
Progress Note (short form) - Note Progress Note: Vital Signs Temperature 98 F 05/05/19 09:04 Pulse Rate 64 05/05/19 09:04 Respiratory Rate 20 05/05/19 09:04 Blood Pressure 133/89 05/05/19 09:04 O2 Sat by Pulse Oximetry (%) 96 05/05/19 09:00 CBCD WBC 7.6 K/mm3 (4.0-10.0) 05/05/19 06:51 RBC 5.16 M/mm3 (4.00-5.60) 05/05/19 06:51 Hgb 15.0 GM/dL (11.7-16.9) 05/05/19 06:51 Hct 44.2 % (35.4-49) 05/05/19 06:51 MCV 85.7 fl (80-96) 05/05/19 06:51 MCHC 33.8 g/dl (32.0-35.9) 05/05/19 06:51 RDW 14.1 % (11.9-15.9) 05/05/19 06:51 Plt Count 196 K/MM3 (134-434) 05/05/19 06:51 MPV 9.7 fl (7.5-11.1) 05/05/19 06:51 CMP Sodium 140 mmol/L (136-145) 05/05/19 06:51 Potassium 4.3 mmol/L (3.5-5.1) 05/05/19 06:51 Chloride 106 mmol/L (98-107) 05/05/19 06:51 Carbon Dioxide 29 mmol/L (21-32) 05/05/19 06:51 Anion Gap 5 MMOL/L (8-16) L 05/05/19 06:51 BUN 17.3 mg/dL (7-18) 05/05/19 06:51 Creatinine 1.0 mg/dL (0.55-1.3) 05/05/19 06:51 Random Glucose 108 mg/dL (74-106) H 05/05/19 06:51 Calcium 9.4 mg/dL (8.5-10.1) 05/05/19 06:51 Total Bilirubin 0.7 mg/dL (0.2-1) 05/05/19 06:51 AST 13 U/L (15-37) L 05/05/19 06:51 ALT 18 U/L (13-61) 05/05/19 06:51 Alkaline Phosphatase 51 U/L (45-117) 05/05/19 06:51 Total Protein 7.2 g/dl (6.4-8.2) 05/05/19 06:51 Albumin 3.5 g/dl (3.4-5.0) 05/05/19 06:51 CARDIAC ENZYMES Creatine Kinase 242 U/L (26-308) 05/04/19 09:12 Troponin I < 0.02 ng/ml (0.00-0.05) 05/04/19 17:20 Current Medications Generic Name Dose Route Start Last Admin Trade Name Freq PRN Reason Stop Dose Admin Amlodipine Besylate 10 mg 05/05/19 10:00 Norvasc - PO DAILY NATHANIEL Atorvastatin Calcium 20 mg 05/04/19 22:00 05/04/19 23:31 Lipitor - PO 20 mg HS NATHANIEL Administration Docusate Sodium 100 mg 05/04/19 13:15 05/04/19 23:31 Colace - PO 100 mg DAILY NATHANIEL Administration Heparin Sodium (Porcine) 5,000 unit 05/04/19 18:00 05/05/19 03:00 Heparin - SQ 5,000 unit Q8H-IV NATHANIEL Administration Hydrochlorothiazide 50 mg 05/05/19 10:00 Hctz - PO DAILY NATHANIEL Sodium Chloride 1,000 mls @ 42 mls/hr 05/04/19 09:00 05/04/19 17:38 Normal Saline - IV 42 mls/hr ASDIR NATHANIEL Administration Insulin Aspart 1 vial 05/04/19 16:30 05/05/19 06:28 Novolog Vial Sliding Scale - SQ Not Given ACHS [facility] Protocol Latanoprost 1 drop 05/04/19 22:00 05/05/19 00:06 Xalatan 0.005% Eye Drops - OU 1 drop HS NATHANIEL Administration Pantoprazole Sodium 40 mg 05/04/19 13:48 Protonix - PO DAILY NATHANIEL Polyethylene Glycol 17 gm 05/04/19 13:15 05/04/19 23:31 Miralax (For Daily Use) - PO 17 gm DAILY NATHANIEL Administration Prednisone 60 mg 05/04/19 14:00 05/04/19 16:28 Deltasone - PO 05/08/19 10:01 Not Given DAILY NATHANIEL Timolol Maleate 1 drop 05/04/19 22:00 05/05/19 00:06 Timoptic 0.5% OU 1 drop BID [facility] Administration Home Medications Medication Instructions Recorded Amlodipine Besylate [Norvasc -] 10 mg PO DAILY 10/06/17 Metformin HCl [Glucophage] 500 mg PO BID 10/06/17 Hydrochlorothiazide 50 mg PO DAILY 05/04/19 Latanoprost/Pf [Latanoprost 0.005% 1 drop OU HS 05/04/19 Eye Drop] Simvastatin 40 mg PO HS 05/04/19 Timolol 0.5% [Timoptic 0.5%] 1 drop OU BID 05/04/19
[2019-05-05] MEDS ORDERED: ASPIRIN COATED 81 MG TABLET.EC PO SCH (10:00)
--- NOTE | 2019-05-05 10:32 | PN ---
Progress Note (short form) - Note Progress Note: Neurology History of Present Illness - History of Present Illness 63 yo M with a hx of HTN and DM presents to the emergency department with right facial weakness that began at 7:30 am morning of admission. Per the patient, he states he was at rest when the symptoms occurred. It was right facial weakness, but denies extremity weakness. Denies sensation loss. Denies hx of chickenpox and zoster. Per the patient, denies trauma. He feels, subjectively, resolving symptoms. Denied fever, chills, SOB, chest pain, nausea, vomiting, ears/nose/ throat pain, abdominal pain, dysuria, hematuria, diarrhea, hematochezia, and leg pain/swelling. Ramakrishna coels was called and I saw the patient at bedside in the ER who did demonstrate some right facial weakness but otherwise no other focal deficits. Speech was fluent Noncontrast head CT was completed and did not show any acute changes. Discussed with the resident that would not likely be a TPA case as patient with minimal symptoms, NIHSS. I advised admission and having MRI of the brain completed. MRI brain completed and without acute changes. Carotids showed mild thickening and minimal plaques, no HD signficant stenosis. Patient's symptoms much improved and minimal facial weakness, good blink response though advised using eye drops. Active Medications Amlodipine Besylate (Norvasc -) 10 mg PO DAILY [facility] Atorvastatin Calcium (Lipitor -) 20 mg PO HS [facility] Last Admin: 05/04/19 23:31 Dose: 20 mg Docusate Sodium (Colace -) 100 mg PO DAILY [facility] Last Admin: 05/04/19 23:31 Dose: 100 mg Heparin Sodium (Porcine) (Heparin -) 5,000 unit SQ Q8H-IV NATHANIEL Last Admin: 05/05/19 03:00 Dose: 5,000 unit Hydrochlorothiazide (Hctz -) 50 mg PO DAILY [facility] Sodium Chloride (Normal Saline -) 1,000 mls @ 42 mls/hr IV ASDIR NATHANIEL Last Admin: 05/04/19 17:38 Dose: 42 mls/hr Insulin Aspart (Novolog Vial Sliding Scale -) 1 vial SQ ACHS NATHANIEL; Protocol Last Admin: 05/05/19 06:28 Dose: Not Given Latanoprost (Xalatan 0.005% Eye Drops -) 1 drop OU HS [facility] Last Admin: 05/05/19 00:06 Dose: 1 drop Pantoprazole Sodium (Protonix -) 40 mg PO DAILY [facility] Polyethylene Glycol (Miralax (For Daily Use) -) 17 gm PO DAILY [facility] Last Admin: 05/04/19 23:31 Dose: 17 gm Prednisone (Deltasone -) 60 mg PO DAILY [facility] Stop: 05/08/19 10:01 Last Admin: 05/04/19 16:28 Dose: Not Given Timolol Maleate (Timoptic 0.5%) 1 drop OU BID [facility] Last Admin: 05/05/19 00:06 Dose: 1 drop *Physical Exam Vital Signs Period Temp Pulse Resp BP Sys/[place] Pulse Ox Last 24 Hr 97.6 F-98.0 F 63-77 15-20 126-139/71-95 96-99 Gen: Awake, alert, responds to questions appropriately Card: RRR, nml S1,S2 Resp: Normal symmetric effort, lungs clear to auscultation Abdomen: Soft, nontender, bowel sounds active Musculoskeletal: Adequate range of motion without significant deformity Head atraumatic and normocephalic CN: PERRL, EOMI intact, mild R facial droop, no abnormalities in facial sensation, palate elevates, uvula and tongue midline Motor: Strength intact to confrontation in upper and lower extremities. Tone normal throughout Sensory: Intact to Temperature, light touch, and pinprick in all extremities Reflexes: 2+ biceps, brachioradialis, patellar, achillies Coordination: Intact on [id number] testing CBCD WBC 7.6 K/mm3 (4.0-10.0) 05/05/19 06:51 RBC 5.16 M/mm3 (4.00-5.60) 05/05/19 06:51 Hgb 15.0 GM/dL (11.7-16.9) 05/05/19 06:51 Hct 44.2 % (35.4-49) 05/05/19 06:51 MCV 85.7 fl (80-96) 05/05/19 06:51 MCHC 33.8 g/dl (32.0-35.9) 05/05/19 06:51 RDW 14.1 % (11.9-15.9) 05/05/19 06:51 Plt Count 196 K/MM3 (134-434) 05/05/19 06:51 MPV 9.7 fl (7.5-11.1) 05/05/19 06:51 CMP Sodium 140 mmol/L (136-145) 05/05/19 06:51 Potassium 4.3 mmol/L (3.5-5.1) 05/05/19 06:51 Chloride 106 mmol/L (98-107) 05/05/19 06:51 Carbon Dioxide 29 mmol/L (21-32) 05/05/19 06:51 Anion Gap 5 MMOL/L (8-16) L 05/05/19 06:51 BUN 17.3 mg/dL (7-18) 05/05/19 06:51 Creatinine 1.0 mg/dL (0.55-1.3) 05/05/19 06:51 Random Glucose 108 mg/dL (74-106) H 05/05/19 06:51 Calcium 9.4 mg/dL (8.5-10.1) 05/05/19 06:51 Total Bilirubin 0.7 mg/dL (0.2-1) 05/05/19 06:51 AST 13 U/L (15-37) L 05/05/19 06:51 ALT 18 U/L (13-61) 05/05/19 06:51 Alkaline Phosphatase 51 U/L (45-117) 05/05/19 06:51 Total Protein 7.2 g/dl (6.4-8.2) 05/05/19 06:51 Albumin 3.5 g/dl (3.4-5.0) 05/05/19 06:51 CARDIAC ENZYMES Creatine Kinase 242 U/L (26-308) 05/04/19 09:12 Troponin I < 0.02 ng/ml (0.00-0.05) 05/04/19 17:20 Plan: 63 yo M with a hx of HTN and DM presents to the emergency department with right facial weakness that began at 7:30 am morning of admission. Per the patient, he states he was at rest when the symptoms occurred. It was right facial weakness, but denies extremity weakness. Denies sensation loss. Denies hx of chickenpox and zoster. Per the patient, denies trauma. He feels, subjectively, resolving symptoms. Denied fever, chills, SOB, chest pain, nausea, vomiting, ears/nose/ throat pain, abdominal pain, dysuria, hematuria, diarrhea, hematochezia, and leg pain/swelling. Ramakrishna sharyn was called and I saw the patient at bedside in the ER who did demonstrate some right facial weakness but otherwise no other focal deficits. Speech was fluent Noncontrast head CT was completed and did not show any acute changes. Discussed with the resident that would not likely be a TPA case as patient with minimal symptoms, NIHSS. I advised admission and having MRI of the brain completed. MRI brain completed and without acute changes. Carotids showed mild thickening and minimal plaques, no HD signficant stenosis. Patient's symptoms much improved and minimal facial weakness, good blink response though advised using eye drops. LDL of 77 noted within normal limits. Monitor blood pressure, maintain normal range. monitor glucose, continue metformin 500 mg twice a day. ASA 81mg not required. Can treat for holt 's palsy including 5 day course of prednisone, facial exercises, eye patch, eyedrops.
[2019-05-05] MEDS: DOCUSATE SODIUM 100 MG CAPSULE (FP) PO SCH (10:47)
[2019-05-05] MEDS: HYDROCHLOROTHIAZIDE 25 MG TABLET (FP) PO SCH (10:47)
[2019-05-05] MEDS: amLODIPine BESYLATE 10 MG TABLET (FP) PO SCH (10:48)
[2019-05-05] MEDS: predniSONE 20 MG TABLET (UD) PO SCH (10:48)
[2019-05-05] MEDS: SODIUM CHLORIDE 1,000 ML IV SCH (10:48)
[2019-05-05] MEDS: PANTOPRAZOLE 20 MG TABLET PO SCH (10:48)
[2019-05-05] MEDS: POLYETHYLENE GLYCOL 3350 119 GM BTL PO SCH (14:08)
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
[2019-05-05] MEDS: ATORVASTATIN CA 20 MG TABLET (FP) PO SCH (21:49)
[2019-05-06] MEDS: HEPARIN NA (PORCINE) 5,000 UNITS/ML 1ML VIAL SQ SCH ×2 (01:31→09:05)
[2019-05-06] MEDS: INSULIN SLIDING SCALE (NOVOLOG) 1 VIAL SQ SCH ×2 (07:06→11:19)
[2019-05-06] MEDS: HYDROCHLOROTHIAZIDE 25 MG TABLET (FP) PO SCH (09:05)
[2019-05-06] MEDS: PANTOPRAZOLE 20 MG TABLET PO SCH (09:05)
[2019-05-06] MEDS: DOCUSATE SODIUM 100 MG CAPSULE (FP) PO SCH (09:05)
[2019-05-06] MEDS: predniSONE 20 MG TABLET (UD) PO SCH (09:05)
[2019-05-06] MEDS: amLODIPine BESYLATE 10 MG TABLET (FP) PO SCH (09:05)
--- NOTE | 2019-05-06 10:20 | PN ---
Progress Note (short form) - Note Progress Note: Neurology History of Present Illness - History of Present Illness 63 yo M with a hx of HTN and DM presents to the emergency department with right facial weakness that began at 7:30 am morning of admission. Per the patient, he states he was at rest when the symptoms occurred. It was right facial weakness, but denies extremity weakness. Denies sensation loss. Denies hx of chickenpox and zoster. Per the patient, denies trauma. He feels, subjectively, resolving symptoms. Denied fever, chills, SOB, chest pain, nausea, vomiting, ears/nose/ throat pain, abdominal pain, dysuria, hematuria, diarrhea, hematochezia, and leg pain/swelling. Ramakrishna coles was called and I saw the patient at bedside in the ER who did demonstrate some right facial weakness but otherwise no other focal deficits. Speech was fluent Noncontrast head CT was completed and did not show any acute changes. Discussed with the resident that would not likely be a TPA case as patient with minimal symptoms, NIHSS. I advised admission and having MRI of the brain completed. MRI brain completed and without acute changes. Carotids showed mild thickening and minimal plaques, no HD signficant stenosis, discussed with patient. Patient's symptoms much improved and minimal facial weakness, good blink response though advised using eye drops. Plan is for discharge today, advised to follow up as outpatient. Active Medications Amlodipine Besylate (Norvasc -) 10 mg PO DAILY [facility] Last Admin: 05/06/19 09:05 Dose: 10 mg Atorvastatin Calcium (Lipitor -) 20 mg PO HS [facility] Last Admin: 05/05/19 21:49 Dose: 20 mg Docusate Sodium (Colace -) 100 mg PO DAILY [facility] Last Admin: 05/06/19 09:05 Dose: 100 mg Heparin Sodium (Porcine) (Heparin -) 5,000 unit SQ Q8H-IV [facility] Last Admin: 05/06/19 09:05 Dose: 5,000 unit Hydrochlorothiazide (Hctz -) 50 mg PO DAILY [facility] Last Admin: 05/06/19 09:05 Dose: 50 mg Sodium Chloride (Normal Saline -) 1,000 mls @ 42 mls/hr IV ASDIR [facility] Last Admin: 05/05/19 10:48 Dose: Not Given Insulin Aspart (Novolog Vial Sliding Scale -) 1 vial SQ ACHS [facility]; Protocol Last Admin: 05/06/19 07:06 Dose: Not Given Latanoprost (Xalatan 0.005% Eye Drops -) 1 drop OU HS [facility] Last Admin: 05/05/19 21:52 Dose: 1 drop Pantoprazole Sodium (Protonix -) 40 mg PO DAILY [facility] Last Admin: 05/06/19 09:05 Dose: 40 mg Polyethylene Glycol (Miralax (For Daily Use) -) 17 gm PO DAILY [facility] Last Admin: 05/05/19 14:08 Dose: Not Given Prednisone (Deltasone -) 60 mg PO DAILY [facility] Stop: 05/08/19 10:01 Last Admin: 05/06/19 09:05 Dose: 60 mg Timolol Maleate (Timoptic 0.5%) 1 drop OU BID [facility] Last Admin: 05/05/19 21:51 Dose: 1 drop *Physical Exam Vital Signs Period Temp Pulse Resp BP Sys/[place] Pulse Ox Last 24 Hr 97.4 F-98.8 F 46-68 18-20 118-138/68-96 97-97 Gen: Awake, alert, responds to questions appropriately Card: RRR, nml S1,S2 Resp: Normal symmetric effort, lungs clear to auscultation Abdomen: Soft, nontender, bowel sounds active Musculoskeletal: Adequate range of motion without significant deformity Head atraumatic and normocephalic CN: PERRL, EOMI intact, mild R facial droop, no abnormalities in facial sensation, palate elevates, uvula and tongue midline Motor: Strength intact to confrontation in upper and lower extremities. Tone normal throughout Sensory: Intact to Temperature, light touch, and pinprick in all extremities Reflexes: 2+ biceps, brachioradialis, patellar, achillies Coordination: Intact on cvysyp-fofe-lidcat testing CBCD WBC 7.6 K/mm3 (4.0-10.0) 05/05/19 06:51 RBC 5.16 M/mm3 (4.00-5.60) 05/05/19 06:51 Hgb 15.0 GM/dL (11.7-16.9) 05/05/19 06:51 Hct 44.2 % (35.4-49) 05/05/19 06:51 MCV 85.7 fl (80-96) 05/05/19 06:51 MCHC 33.8 g/dl (32.0-35.9) 05/05/19 06:51 RDW 14.1 % (11.9-15.9) 05/05/19 06:51 Plt Count 196 K/MM3 (134-434) 05/05/19 06:51 MPV 9.7 fl (7.5-11.1) 05/05/19 06:51 CMP Sodium 140 mmol/L (136-145) 05/05/19 06:51 Potassium 4.3 mmol/L (3.5-5.1) 05/05/19 06:51 Chloride 106 mmol/L (98-107) 05/05/19 06:51 Carbon Dioxide 29 mmol/L (21-32) 05/05/19 06:51 Anion Gap 5 MMOL/L (8-16) L 05/05/19 06:51 BUN 17.3 mg/dL (7-18) 05/05/19 06:51 Creatinine 1.0 mg/dL (0.55-1.3) 05/05/19 06:51 Random Glucose 108 mg/dL (74-106) H 05/05/19 06:51 Calcium 9.4 mg/dL (8.5-10.1) 05/05/19 06:51 Total Bilirubin 0.7 mg/dL (0.2-1) 05/05/19 06:51 AST 13 U/L (15-37) L 05/05/19 06:51 ALT 18 U/L (13-61) 05/05/19 06:51 Alkaline Phosphatase 51 U/L (45-117) 05/05/19 06:51 Total Protein 7.2 g/dl (6.4-8.2) 05/05/19 06:51 Albumin 3.5 g/dl (3.4-5.0) 05/05/19 06:51 CARDIAC ENZYMES Creatine Kinase 242 U/L (26-308) 05/04/19 09:12 Troponin I < 0.02 ng/ml (0.00-0.05) 05/04/19 17:20 Plan: 63 yo M with a hx of HTN and DM presents to the emergency department with right facial weakness that began at 7:30 am morning of admission. Per the patient, he states he was at rest when the symptoms occurred. It was right facial weakness, but denies extremity weakness. Denies sensation loss. Denies hx of chickenpox and zoster. Per the patient, denies trauma. He feels, subjectively, resolving symptoms. Denied fever, chills, SOB, chest pain, nausea, vomiting, ears/nose/ throat pain, abdominal pain, dysuria, hematuria, diarrhea, hematochezia, and leg pain/swelling. Ramakrishna sharyn was called and I saw the patient at bedside in the ER who did demonstrate some right facial weakness but otherwise no other focal deficits. Speech was fluent Noncontrast head CT was completed and did not show any acute changes. Discussed with the resident that would not likely be a TPA case as patient with minimal symptoms, NIHSS. I advised admission and having MRI of the brain completed. MRI brain completed and without acute changes. Carotids showed mild thickening and minimal plaques, no HD signficant stenosis. Patient's symptoms much improved and minimal facial weakness, good blink response though advised using eye drops. LDL of 77 noted within normal limits. Monitor blood pressure, maintain normal range. monitor glucose, continue metformin 500 mg twice a day. ASA 81mg not required. Plan is for discharge today, advised to follow up as outpatient. Can treat for holt's palsy including 5 day course of prednisone, facial exercises, eye patch, eyedrops.
[2019-05-06] MEDS: TIMOLOL 0.5% OPHTHALMIC SOL 5 ML BOTTLE OU SCH (11:19)
[2019-05-06] MEDS: POLYETHYLENE GLYCOL 3350 119 GM BTL PO SCH (11:19)
[2019-05-06] MEDS: SODIUM CHLORIDE 1,000 ML IV SCH (11:20)
--- NOTE | 2019-05-06 13:22 | DS ---
Physical Exam: 63 M h/o HTN, DM2 and HLD presenting for sudden onset of R sided facial droop, R hand weakness and slight slurred speech that started morning of admission. MRI brain negative for acute infarct, symptoms now resolved after treating for Kelly's palsy with Prednisone 60mg daily. Patient seen at bedside today, now appears to be at baseline, endorses R mouth droop and R hand weakness now resolved. Feels well, tolerating PO, ready for discharge home with 1 week follow up with his PCP and Dr. Yusuf neurologist. PE VSS GA comfortable, aaox3, speaks in full sentences HEENT NC/AT, mild R eye strabismus present, eyes cross midline, neck supple, no mouth droop, facial muscles symmetric with good strength b/l CVS S1, S2+, RRR, no m/r/g Abd Soft, NT, ND, BS+ Ext moves all 4 extremities, no LE edema, no calf tenderness Neuro: sensation intact and equal upper and lower extremities, moves all 4 extremities with 5/5 strength UE and LE, facial muscles symmetric, no facial weakness Vital Signs - 24 hr 05/05/19 05/05/19 05/06/19 14:00 20:32 01:21 Temperature 98.8 F 97.6 F 97.8 F Pulse Rate 66 63 60 Respiratory 20 20 20 Rate Blood Pressure 129/71 122/68 118/74 O2 Sat by Pulse 97 Oximetry (%) 05/06/19 05/06/19 05/06/19 05:53 08:19 09:03 Temperature 97.4 F L 98.7 F Pulse Rate 46 L 68 Respiratory 20 20 18 Rate Blood Pressure 138/94 136/96 O2 Sat by Pulse 97 Oximetry (%) Laboratory Results - last 24 hr 05/05/19 05/05/19 05/06/19 17:11 21:49 07:06 POC Glucometer 171 168 99 05/06/19 11:17 POC Glucometer 102 Home Medications Medication Instructions Recorded Amlodipine Besylate [Norvasc -] 10 mg PO DAILY 10/06/17 Metformin HCl [Glucophage] 500 mg PO BID 10/06/17 Hydrochlorothiazide 50 mg PO DAILY 05/04/19 Latanoprost/Pf [Latanoprost 0.005% 1 drop OU HS 05/04/19 Eye Drop] Simvastatin 40 mg PO HS 05/04/19 Timolol 0.5% [Timoptic 0.5%] 1 drop OU BID 05/04/19 predniSONE [Deltasone -] 60 mg PO DAILY #6 tablet 05/06/19 63 year old AA M, h/o HTN, HLD, T2DM presents with symptoms of R mouth droop and R hand weakness, now resolved. MRI neg. for acute/old infarct. TIA v.s. ? Kelly's palsy. R mouth droop MRI neg. for acute CVA, ?viral in origin, ASA/Statin given inpatient, continue as outpatient Symptoms been going on for weeks, if CVA shouldve been seen on MRI Cont. Prednisone 60mg daily to cover for HSV/[place] Palsy (total 5 days), no need for antivirals right now due to resolved symptoms FLU/RSV/HIV/RPR-negative Cleared by Neurology, follow up as outpatient Neurology consult : Dr. Yusuf HTN continue home meds risk reduction counselor diet/exercise/weight loss/DASH diet HLD continue statin T2DM Diet, exercise, weight loss counseling ISS, basal insulin PRN Discharge medications: Prednisone 60mg daily x 2 more days Continue all other home medications. Follow up with PCP 1 week Follow up with Dr. Yusuf neurologist 1 week. Minutes to complete discharge: 35 Discharge Summary Problems reviewed: Yes Reason For Visit: CVA Current Active Problems Kelly's palsy (Acute) HTN (hypertension) (Acute) Hypokalemia (Acute) Condition: Good - Instructions Diet, Activity, Other Instructions: You were treated for Kelly's palsy and muscle weakness. You should complete 2 more days of Prednisone 60mg daily. You may return to your regular diet and exercise regimen as tolerated. Please follow up with your primary care doctor and neurology clinic in 1 week. If you feel weakness, numbness, tingling, dizziness, chest pain, shortness of breath, loss of consciousness, loss of balance, difficulty swallowing please go to your nearest emergency room. Referrals: Patrice Yusuf MD [Staff Physician] - Disposition: HOME - Home Medications Comprehensive Discharge Medication List: Ambulatory Orders Amlodipine Besylate [Norvasc -] 10 mg PO DAILY 10/06/17 Metformin HCl [Glucophage] 500 mg PO BID 10/06/17 Hydrochlorothiazide 50 mg PO DAILY 05/04/19 Latanoprost/Pf [Latanoprost 0.005% Eye Drop] 1 drop OU HS 05/04/19 Simvastatin 40 mg PO HS 05/04/19 Timolol 0.5% [Timoptic 0.5%] 1 drop OU BID 05/04/19 predniSONE [Deltasone -] 60 mg PO DAILY #6 tablet 05/06/19 This patient is new to me today: No Emergency Visit: Yes ED Registration Date: 05/04/19 Care time: The patient presented to the Emergency Department on the above date and was hospitalized for further evaluation of their emergent condition. Critical Care patient: No - Discharge Referral Referred to [facility] Med P.C.: No
[2019-05-06 14:39] VITALS: BP 116/78; PULSE 61; TEMP 98.2
== END 2019-05-06 16:09 | disposition home or self-care (01) | DRG 48 ==
LOC: JER 08:39 → JERBED 11:07 → J4W 23:05
DX: G51.0 Bell's palsy (principal); I10 Essential (primary) hypertension; E87.6 Hypokalemia; E11.9 Type 2 diabetes mellitus without complications; E78.5 Hyperlipidemia, unspecified
CPT/HCPCS: 36415; 70450-TC; 70551-TC; 80053; 80061; 81003; 82550; 82553; 82962; 83036; 83721; 83735; 84100; 84443; 84484; 85025; 85610; 85730; 86593; 86850; 86900; 86901; 87389; 87804; 93005; 93010; 93880-TC; 97116-GP; 97161-GP; 99285-25; J1644; J7030